=== PATIENT | female | born 2000 | race Caucasian/White ===

== ENCOUNTER → 2025-05-15 | Outpatient (CLI) | payer OTHER | LOC: LAB SHORT 11:13 → LAB 11:13 | DX: R30.0 Dysuria (principal) | CPT/HCPCS: 87086; 87147 ==

== ENCOUNTER → 2025-06-24 | Outpatient (CLI) | payer OTHER | LOC: LAB SHORT 09:25 → LAB 09:25 | DX: R82.998 Other abnormal findings in urine (principal) | CPT/HCPCS: 87086 ==